=== PATIENT | female | born 1990 ===

== ENCOUNTER 2020-12-11 14:30 | Inpatient (IN) | payer OTHER ==
[~2020-12-11] VITALS: Ht 154.9 cm; Wt 83.5 kg
== END 2020-12-21 14:01 | disposition home or self-care (01) | DRG 807 ==
LOC: LDR 12-18 21:59 → OB/GYN 12-18 21:59
PROVIDERS: ADMIT Obstetrics & Gynecology Maternal & Fetal Medicine; ATTEND Obstetrics & Gynecology Maternal & Fetal Medicine
PROC: 10E0XZZ Delivery of Products of Conception, External Approach (ICD-10-PCS; principal; 2020-12-19)
PROC: 4A1HXFZ Monitoring of Products of Conception, Cardiac Rhythm, External Approach (ICD-10-PCS; 2020-12-19)
DX: O70.0 First degree perineal laceration during delivery (principal); Z37.0 Single live birth; Z3A.38 38 weeks gestation of pregnancy